=== PATIENT | male | born 1950 | race Caucasian/White ===

== ENCOUNTER → 2020-03-29 14:12 | Outpatient (CLI) | payer MEDICARE, OTHER, SELFPAY | PROVIDERS: PCP Student in an Organized Health Care Education/Training Program; Visit Provider Specialist | DX: N39.0 Urinary tract infection, site not specified (principal); R97.20 Elevated prostate specific antigen [PSA]; N40.1 Benign prostatic hyperplasia with lower urinary tract symptoms; N13.8 Other obstructive and reflux uropathy; Z87.440 Personal history of urinary (tract) infections | CPT/HCPCS: 51798; 81002; 87077; 87086; 99214 ==

== ENCOUNTER → 2021-02-12 14:13 | Outpatient (CLI) | payer MEDICARE, OTHER, SELFPAY ==
[2021-02-12 15:02] LABS: BUN Creatinine Ratio 20.4 (6-22); Blood Urea Nitrogen 20 mg/dL (9-20); Calcium 9.3 mg/dL (8.4-10.2); Carbon Dioxide 32 mmol/L (22-32); Chloride 101 mmol/L (98-107); Estimated Glomerular Filt Rate > 60.0 mL/min (>60); Glucose 128 mg/dL (80-110); HEMOLYSIS < 15 (0-50); Potassium 4.6 mmol/L (3.4-5.1); Sodium 139 mmol/L (137-145)
[2021-02-12 15:29] LABS: Prostate Specific Antigen 6.86 ng/mL (0.10-4.00)
== END ==
PROVIDERS: PCP Family Medicine; Referring Provider Specialist; Visit Provider Specialist
DX: Z01.812 Encounter for preprocedural laboratory examination (principal); N40.1 Benign prostatic hyperplasia with lower urinary tract symptoms; N13.8 Other obstructive and reflux uropathy; R97.20 Elevated prostate specific antigen [PSA]; R31.9 Hematuria, unspecified; Z87.440 Personal history of urinary (tract) infections
CPT/HCPCS: 36415; 51798; 80048; 81002; 84153; 99215

== ENCOUNTER → 2021-02-18 13:33 | Outpatient (CLI) | payer MEDICARE, OTHER, SELFPAY ==
--- NOTE | 2021-02-18 13:50 | DI.CT.S_ITS ---
PROCEDURE: CT ABDOMEN PELVIS W CON INDICATIONS: Prostate Cancer TECHNIQUE: After the administration of oral and intravenous contrast, axial sections were acquired from the lung bases to the pubic symphysis. Coronal and sagittal reformats were performed. For radiation dose reduction, the following was used: automated exposure control, adjustment of mA and/or kV according to patient size. COMPARISON:None. FINDINGS: ABDOMEN: Lung bases: No acute findings. Heart: No pericardial effusion. Normal in size. Liver: Hepatic steatosis Gallbladder: Negative Bile ducts: Normal. Pancreas: Normal. Spleen: Punctate granulomatous calcifications, chronic finding. Adrenals: Normal. Kidneys and Ureters: Normal. Stomach and duodenum: Normal. Bowel: Normal. Other: No free fluid or air. Abdominal nodes: Normal. Aorta and IVC: Scattered atheromatous calcifications in the aorta. 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 Ventral wall: Normal. PELVIS: Bladder: Prominent right and posterior bladder wall thickening, in keeping with neoplasm. Exact measurements are difficult due to irregular configuration however this measures approximately 6.5 x 2.2 cm on axial image 87/2. Prostate grossly unremarkable. Inguinal region: No hernia. Pelvic nodes: Normal. Bones: No suspicious bony lesions. No vertebral body compression fractures. Diffuse spondylitic changes and facet arthropathy. IMPRESSION: Extensive right/posterior bladder wall thickening, in keeping with neoplasm versus metastatic disease. This could be related to primary bladder carcinoma, versus metastatic involvement of the bladder secondary to patient's clinically reported history of prostate carcinoma. Further evaluation with cystoscopy could be performed for further assessment as clinically warranted. Elsewhere, no evidence of distant metastatic disease. Prominent saccular aneurysm involving the left common iliac artery as above. Dictated by: Juancarlos Olvera M.D. on 02/18/2021 at 16:03 Approved by: Juancarlos Olvera M.D. on 02/18/2021 at 16:21
== END ==
PROVIDERS: PCP Family Medicine; Referring Provider Specialist; Visit Provider Specialist
DX: C61 Malignant neoplasm of prostate (principal); R31.9 Hematuria, unspecified; R97.20 Elevated prostate specific antigen [PSA]; N32.9 Bladder disorder, unspecified; I72.3 Aneurysm of iliac artery
CPT/HCPCS: 74177

== ENCOUNTER → 2021-05-28 13:20 | Outpatient (CLI) | payer MEDICARE, OTHER, SELFPAY ==
[2021-05-28 14:00] LABS: COVID19 -Nasal RAPID Negative (Negative)
== END ==
PROVIDERS: PCP Family Medicine; Visit Provider Specialist
DX: Z20.822 Contact with and (suspected) exposure to COVID-19 (principal)
CPT/HCPCS: 87635; C9803

== ENCOUNTER 2021-05-31 06:19 | Day surgery (SDC) | payer MEDICARE, OTHER, SELFPAY ==
[2021-05-28 12:33] VITALS: BMI 25.8
[2021-05-31] VITALS (14 sets, daily range): BP systolic 105–152; BP diastolic 67–87; PULSE 62–73; RESP 8–16; TEMP 36.1–36.5; O2SAT 93–99; BMI 25.8
--- NOTE | 2021-05-31 | PATH_ITS ---
[facility] Accession Number: [id number] . 01 Material submitted: . bladder - RIGHT BLADDER WALL . 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 Histologic grade: High grade. Tumor extent: Invades lamina propria. Lymphovascular invasion: Not identified. Muscularis propria: Present. Associated epithelial lesions: Carcinoma in situ. MRV 06/05/2021 1424 Local . 02 Comment: As part of routine air quality chemist, Dr. White also reviewed this case and agrees with the diagnosis. . 02 Electronically signed: . Delphine Bowden MD, Pathologist NPI- [id number] . 01 Gross description: . Received in formalin, labeled with the patient's name and right bladder wall, is a 1 g, 2.0 x 1.5 x 0.3 cm aggregate of multiple fragments of pink-bagley, rubbery soft tissue. Entirely submitted. . SUMMARY OF SECTIONS: A1: Multiple pieces. ([id number]) /FRR 06/01/2021 1858 Local . 02 Pathologist provided ICD-10: C67.2 . 02 CPT . 433497 Specimen Comment: A courtesy copy of this report has been sent to [phone] Performed at: [address] [facility] Cyt[facility] [address] [facility], [place], [place] [id number] MD Sigifredo Mercedes MD Phone: [phone] Performed at: 02 [facility] [place] [address] [place], [place] [id number] MD Delphine Bowden MD Phone: [phone]
[2021-05-31] MEDS: LACTATED RINGERS 1,000 ML 42 ML IV (07:18)
--- NOTE | 2021-05-31 07:23 | PM.PREOP ---
Pre-operative Note COVID-19 Criteria for continued procedure: Expected advancement of disease process, Possibility delay results in more complex future surgery or treatment, Deterioration of the patient's condition or overall health, Delay expected to result in less-positive ultimate med/surg outcome and Non-surgical alternatives not available or appropriate per current SOC Interval Note History & Physical reviewed/Exam performed by Physician: Yes Changes to H&P: No
[2021-05-31] MEDS: ACETAMINOPHEN IV 1,000 MG/100 ML VIAL 400 MG IV (07:33)
[2021-05-31] MEDS: CEFAZOLIN 2 GM/20 ML SYRINGE IV (08:03)
--- NOTE | 2021-05-31 08:17 | SUR.OPER ---
Lithotomy on padded OR bed, head on pillow, arms secured on padded arm boards at <90 degrees abduction. Legs secured in padded yellow fins stirrups.
[2021-05-31] MEDS: BELLADONNA/OPIUM SUPPOSITORIES 1 EACH PR (08:22)
[2021-05-31] MEDS: WATER FOR INJECTION,STERILE 20 ML, mitoMYcin 20 MG INTRAVESIC (08:41)
--- NOTE | 2021-05-31 08:50 | PM.OP.1 ---
Operative Date/Time/Diagnoses Date of procedure: 05/31/21 Time of procedure: 08:50 Pre-op diagnosis: Bladder neoplasm Post-op diagnosis: same Procedure & Clinicians Procedure: 1. Transurethral resection of bladder tumor (2 cm to 5 cm). 2. Cystoscopy/installation mitomycin-C (20 mg). Same procedure as scheduled: Yes Indications: 1. 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 Urethra-normal caliber without annular stricture or lesion. 2. External sphincter coapted with normal overlying urothelium. 3. Prostate-4+ cm length with markedly elevated median bar. Urothelium with multiple tiny mucosal calcifications. 4. Bladder-normal ureteral orifices bilaterally with clear efflux. Severe trabeculation with cellule and small diverticulum development in multiple areas including within vicinity of the index neoplasm. Neoplasm involved much of the right anterior lateral wall. Visibly it involved the muscularis. I had significant concerned that the risk of bladder perforation would be high given the multitude of areas within and around the region of the neoplasm that were only of mucosal thickness. Interestingly and fortunately, I did not see any emanuel neoplasm actually involving any of the diverticula. It is this Surgeons opinion that the tumor is incompletely resected but quite confident the specimen contains muscularis propria. Closure Type: not applicable Specimen(s): other (Neoplasm-right bladder wall) Applied: catheter (20 Italian hematuria catheter) Estimated Blood Loss (mL): 0 Blood products transfused: none Procedure in detail: Patient was positioned supine was administered general anesthesia. He was then repositioned semi lithotomy and the lower abdomen, genitalia, and groin were then prepped and draped in sterile fashion. The resectoscope was then passed lower urinary track and under direct visualization the findings as described above were noted. The resectoscope was then fitted with the resecting loop and methodical TUR of the majority of the visible lesion was then undertaken. The pieces were gathered and submitted to pathology for routine gross and microscopic examination. The bladder was then left partially filled all instrumentation was removed. A 20 Italian hematuria catheter was then inserted, the balloon inflated 10 cc in the bladder contents drained. Next, a 20 cc solution containing 20 mg of mitomycin-C were then instilled into the bladder and a catheter plug left in place for anticipated 2 are retention. Patient was then repositioned in supine, awakened, transferred to [facility] for transfer to PACU. Complications: none Post-operative Condition: stable Disposition: PACU
--- NOTE | 2021-05-31 09:02 | SUR.PHASEI ---
Patient to PACU with Dr Canales, after general anesthesia. Oral airway in place, oxygen via simple mask at 15L and chin lift held by Annie GUZMAN.
[2021-05-31] MEDS: OXYCODONE IR 5 MG TABLET PO ×2 (09:49→12:08)
--- NOTE | 2021-05-31 15:03 | SUR.PHASEII ---
Pt garcia mitomycin drained at 1045 and new drainage bag placed. Discharge teaching done with patient and with drainage bag and leg bag.
== END 2021-05-31 12:15 | disposition home or self-care (01) ==
PROVIDERS: PCP Family Medicine; Referring Provider Specialist; Visit Provider Specialist
PROC: 0TBB8ZZ Excision of Bladder, Via Natural or Artificial Opening Endoscopic (ICD-10-PCS; CPT 52235; principal; 2021-05-31 07:45)
DX: C67.2 Malignant neoplasm of lateral wall of bladder (principal); I10 Essential (primary) hypertension; N40.1 Benign prostatic hyperplasia with lower urinary tract symptoms; N13.8 Other obstructive and reflux uropathy; Z85.46 Personal history of malignant neoplasm of prostate; Z87.891 Personal history of nicotine dependence
CPT/HCPCS: 52235; J0131; J0690; J1100; J2250; J2405; J2704; J3010; J9280

== ENCOUNTER → 2021-06-20 11:14 | Outpatient (CLI) | payer MEDICARE, OTHER, SELFPAY | PROVIDERS: PCP Family Medicine; Visit Provider Specialist | DX: C61 Malignant neoplasm of prostate (principal); C67.9 Malignant neoplasm of bladder, unspecified; R30.0 Dysuria | CPT/HCPCS: 51798; 81002; 87086; 99215 ==

== ENCOUNTER → 2021-06-27 10:57 | Outpatient (CLI) | payer MEDICARE, OTHER, SELFPAY ==
--- NOTE | 2021-06-27 11:01 | DI.CT.S_ITS ---
PROCEDURE: CT CHEST ABD PEL W CON INDICATIONS: PROSTATE CANCER TECHNIQUE: After the administration of oral and intravenous contrast, axial sections acquired from the supraclavicular neck to the pubic symphysis. Coronal and sagittal reformats were performed. For radiation dose reduction, the following was used: automated exposure control, adjustment of mA and/or kV according to patient size. COMPARISON:[facility], CT, CT ABDOMEN PELVIS W CON, 02/18/2021, 14:27. FINDINGS: Image quality: Excellent. CHEST: Lower Neck: No enlarged lymph nodes. Thyroid: Within normal limits. Axillae: No enlarged lymph nodes. Chest Wall: Unremarkable. Lungs and Airways: No consolidation or suspicious nodules. [id number] centrilobular and paraseptal emphysema. A few benign-appearing calcified granulomas are seen in the left lung. Nonspecific 8 x 4 mm subpleural nodule is seen in the peripheral right upper lobe (99/5). Pleura: No pneumothorax or pleural effusions. Heart: Heart size is normal. No pericardial effusion. Moderate coronary artery calcifications. Thoracic Vessels: The ascending thoracic aorta measures up to 4 cm in diameter at the level of the right pulmonary artery. Moderate calcified and noncalcified aortic atherosclerotic calcifications. Mediastinum and Alice: No enlarged lymph nodes. Calcified left hilar and mediastinal lymph nodes are noted. Esophagus: No wall thickening. No hiatal hernia. ABDOMEN: Liver: Unremarkable. Gallbladder: Unremarkable. Biliary ducts: Unremarkable. Pancreas: Unremarkable. Spleen: A few coarse calcifications in the spleen are likely the sequela of prior granulomatous disease. Adrenal Glands: Unremarkable. Kidneys and Ureters: Unremarkable. Stomach and Bowel: Stomach, small bowel loops, and colon are unremarkable. Normal appendix. Peritoneum: No abnormal intraperitoneal fluid. No free air. Ventral Wall: No hernia. Abdominal Nodes: No retroperitoneal or mesenteric adenopathy by size criteria. Vessels: Severe aortic atherosclerotic calcifications. There is aneurysmal dilatation of the left common iliac artery to 2.6 cm. PELVIS: Pelvic Organs: The prostate is enlarged and heterogeneous. Bladder: Diffuse bladder wall thickening is exaggerated by underdistention, but may be worse when compared to the CT from 02/18/2021. Pelvic Nodes: No enlarged lymph nodes. Miscellaneous: Very small fat containing right inguinal hernia. Bones: Degenerative changes are seen throughout the included spine. No definite suspicious osteolytic or osteoblastic lesion. IMPRESSION: 1. Diffuse bladder wall thickening appears worse when compared to the CT from 02/18/2021, although findings may be exaggerated by bladder underdistention. 2. Prostatomegaly. 3. No significant lymphadenopathy in the chest, abdomen, or pelvis. 4. Nonspecific subpleural nodule in the right upper lobe is likely benign. Recommend continued attention on follow-up exams. 5. Gtgi-vo-pizbzidu centrilobular and paraseptal emphysema. 6. 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 Dictated by: Eder Barker M.D. on 06/27/2021 at 14:45 Approved by: Eder Barker M.D. on 06/27/2021 at 15:03
[2021-06-27 11:47] LABS: BUN Creatinine Ratio 15.6 (6-22); Blood Urea Nitrogen 17 mg/dL (9-20); Calcium 9.3 mg/dL (8.4-10.2); Carbon Dioxide 30 mmol/L (22-32); Chloride 102 mmol/L (98-107); Estimated Glomerular Filt Rate > 60.0 mL/min (>60); Glucose 119 mg/dL (80-110); HEMOLYSIS < 15 (0-50); Potassium 5.1 mmol/L (3.4-5.1); Sodium 140 mmol/L (137-145)
== END ==
PROVIDERS: PCP Family Medicine; Referring Provider Specialist; Visit Provider Specialist
DX: C67.9 Malignant neoplasm of bladder, unspecified (principal); C61 Malignant neoplasm of prostate; R91.1 Solitary pulmonary nodule; I72.3 Aneurysm of iliac artery; J43.2 Centrilobular emphysema; I25.10 Atherosclerotic heart disease of native coronary artery without angina pectoris; I70.0 Atherosclerosis of aorta
CPT/HCPCS: 36415; 71260; 74177; 80048; Q9967